=== PATIENT | female | born 1960 | race Caucasian/White ===

== ENCOUNTER 2018-12-02 05:51 | Outpatient (CLI) | payer BC ==
[~2018-12-02] VITALS: Ht 170 cm; Wt 88.6 kg
== END 2018-12-05 09:05 | disposition home or self-care (01) ==
LOC: PREOP 05:51
PROVIDERS: ATTEND Specialist
DX: Z01.818 Encounter for other preprocedural examination (principal)

== ENCOUNTER 2018-12-06 06:15 | Day surgery (SDC) | payer BC ==
[~2018-12-06] VITALS: Ht 170 cm; Wt 88.6 kg
[2018-12-06] MEDS ORDERED: POVIDONE (BETADINE) OPHTH SOLN 5% 30 ML OP ONE (06:30)
[2018-12-06] MEDS ORDERED: MOXIFLOXACIN OPHTH SOLN 5 MG/ML 0.3 ML SYRINGE OP ONE (06:30)
[2018-12-06] MEDS ORDERED: TIMOLOL MALEATE 0.5% 5 ML (TIMOPTIC) BTL OU PRN (06:30)
[2018-12-06] MEDS ORDERED: LIDOCAINE PF 1% 2 ML AMP IR PRN (06:30)
[2018-12-06 06:35] VITALS: BP 136/91
[2018-12-06] MEDS: TETRACAINE 0.5% OPHTH SOLN 4 ML BTL (SINGLE DOSE ONLY) OU PRN ×4 (06:49→07:11)
[2018-12-06] MEDS: PHENYLEPHRINE 10% OPHTH (NEO-SYN) 5 ML BTL OU SCH ×3 (07:00→07:12)
[2018-12-06] MEDS: CYCLOPENTOLATE 1% (CYCLOGYL) 2 ML DROPS OP SCH ×3 (07:00→07:11)
--- NOTE | 2018-12-06 07:47 | Ophthalmologist Pre-Op Note ---
Pre-Operative Progress Note H&P Reviewed The H&P was reviewed, patient examined and no changes noted. Date H&P Reviewed: Dec 06, 2018 Time H&P Reviewed: 07:47 Pre-Op Dx Cataract, Left Eye ROGER RUIZ MD Dec 06, 2018 07:47 POS
[2018-12-06] MEDS ORDERED: acetaZOLAMIDE ER 500 MG CAP (DIAMOX SEQUELS) PO ONE (08:00)
--- NOTE | 2018-12-06 08:07 | Ophthalmology Operative Report ---
Cataract removal/placement IOL PREOPERATIVE DIAGNOSIS: Cataract Left Eye POSTOPERATIVE DIAGNOSIS: Cataract Left Eye PROCEDURE: Cataract removal and placement of posterior chamber implant, left eye SURGEON: Pavel Ruiz ANESTHESIA: Topical with sedation COMPLICATIONS: None ESTIMATED BLOOD LOSS: Minimal DESCRIPTION OF PROCEDURE: After proper informed consent was obtained, the patient, a 58 female, was taken to the Operating Room and the left eye was anesthetized with tetracaine. The left eye was then prepped and draped in the usual manner. A wire lid speculum was placed. A paracentesis was made at the left hand position. Preservative free lidocaine was injected into the anterior chamber followed by viscoelastic. A clear corneal incision was made in the temporal position. A capsulorrhexis was preformed and the central nuclear and cortical material were removed. The posterior capsule was polished and an Jason 17.5 [id number] was placed into the capsular bag. The residual viscoelastic was aspirated and balanced saline solution was injected into the anterior chamber. Moxifloxacin was injected into the anterior chamber. The wound was checked and found to be water tight. The patient tolerated the procedure well without complications. PAVEL RUIZ MD Dec 06, 2018 08:07 POS
[2018-12-06 08:18] VITALS: BP 134/88
--- NOTE | 2018-12-06 12:40 | Anesthesia-General Post-Op ---
MAC Patient Condition Mental Status/LOC: Same as Preop Cardiovascular: Satisfactory Nausea/Vomiting: Absent Respiratory: Satisfactory Pain: Controlled Complications: Absent Post Op Complications Complications None Follow Up Care/Instructions Patient Instructions None needed. Anesthesiology Discharge Order Discharge Order Patient is doing well, no complaints, stable vital signs, no apparent adverse anesthesia problems. No complications reported per nursing. KAMRAN GROSS CRNA Dec 06, 2018 12:40 POS
--- OUTSIDE RECORDS SUMMARY | 2018-12-29 20:26 | XMS REPORT | Continuity of Care Document ---
Author Organization Unknown POS Address Unknown SP Phone Unavailable SP Allergies Active Description Code Type Severity POS Reaction Onset Reported/Identified POS to Patient Clinical Status POS Yes erythromycin base [id number] Drug Allergy SP Moderate STOMACH ULCER 12/05 SP SP Yes Penicillins [id number] Drug Aller gy SP N/A 12/05/2018 SP Medications There is no data. Problems Date Dx Coded Attending Type Code POS Diagnosed By POS 12/04/2018 ROGER RUIZ MD Ot Z01.818 SP ENCOUNTER FOR OTHER PREPROCEDURAL EXAMIN SP 12/05/2018 ROGER RUIZ MD Ot Z01.818 SP ENCOUNTER FOR OTHER PREPROCEDURAL EXAMIN SP 12/05/2018 ROGER RUIZ MD Ot Z01.818 SP ENCOUNTER FOR OTHER PREPROCEDURAL EXAMIN SP 12/06/2018 ROGER RUIZ MD Ot E11.36 SP TYPE 2 DIABETES MELLITUS WITH DIABETIC C SP 12/06/2018 ROGER RUIZ MD Ot H25.12 SP AGE-RELATED NUCLEAR CATARACT, LEFT EYE SP 12/06/2018 ROGER RUIZ MD Ot M19.90 SP UNSPECIFIED OSTEOARTHRITIS, UNSPECIFIED SP 12/06/2018 ROGER RUIZ MD Ot Z80 .9 SP HISTORY OF MALIGNANT NEOPLASM, UN SP 12/06/2018 ROGER RUIZ MD Ot Z83 .3 SP HISTORY OF DIABETES MELLITUS SP 12/06/2018 ROGER RUIZ MD Ot Z83.518 SP FAMILY HISTORY OF OTHER SPECIFIED EYE DI SP 12/06/2018 ROGER RUIZ MD Ot Z88 .0 SP STATUS TO PENICILLIN SP 12/06/2018 ROGER RUIZ MD Ot Z88 .1 SP STATUS TO OTHER ANTIBIOTIC AGENT SP 12/06/2018 ROGER RUIZ MD Ot Z90.89 SP ACQUIRED ABSENCE OF OTHER ORGANS SP 12/06/2018 ROGER RUIZ MD Ot Z98.51 SP TUBAL LIGATION STATUS SP Procedures There is no data. Results There is no data. Encounters ACCT No. Visit Date/Time Discharge Status POS Pt. Type Provider Facility Loc./Un it POS Complaint POS [id number] 12/06/2018 06:15:00 019 08:18:00 SP DIS Outpatient ROGER RUIZ MD [facility] SDC CATARACT LEFT EYE SP [id number] 12/02/2018 05:51:00 09:05:00 SP DIS Outpatient ROGER RUIZ MD [facility] PREOP CATARACT LEFT EYE SP
--- OUTSIDE RECORDS SUMMARY | 2018-12-29 20:26 | XMS REPORT ---
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 Name Role Phone POS DELFINO MCKEON Unavailable SP PROBLEMS No Known Problems ALLERGIES Substance Reaction Event Type Date Status POS Penicillin V Potassium anaphylaxis Drug Allergy Nov, Activ e SP Azithromycin ulcers Drug Allergy Nov, Active SP ENCOUNTERS Encounter Location Date Diagnosis POS [facility] [address] [facility] [id number] [place] [id number] SP Nov, Generalized body aches R52 a nd Acute nonintractable headache, SP headache type R51 [facility] [address] [place] [place] [id number] [place] [phone] SP Nov, Encounter for immunization Z 23 SP IMMUNIZATIONS No Known Immunizations SOCIAL HISTORY Never Assessed REASON FOR VISIT Headache, started feeling sick this smorning around 6am. pt states she had a flu shot yesterday. body aches, headache,nasal drip and sinus pressure. Joseline ANGELES, New pt, moved from [place] prior PCP [facility], Dr. Pina. FRANK over a year ago. Joseline ANGELES PLAN OF CARE Activity Details POS SP Follow Up prn Reason: SP VITAL SIGNS Height 67 in 2017-11-29 POS Weight 191.7 lbs 2017-11-29 POS Temperature 97.6 degrees Fahrenheit 2017-11-29 POS Heart Rate 80 bpm 2017-11-29 POS Respiratory Rate 20 2017-11-29 POS BMI 30.02 kg/m2 2017-11-29 POS Blood pressure systolic 110 mmHg 2017-11-29 POS Blood pressure diastolic 70 mmHg 2017-11-29 POS MEDICATIONS No Known Medications RESULTS No Results PROCEDURES No Known procedures INSTRUCTIONS MEDICATIONS ADMINISTERED No Known Medications MEDICAL (GENERAL) HISTORY Type Description Date POS Medical History Type ll Diabetes SP Surgical History tonsilectomy SP Surgical History nose surgery 1999 SP Surgical History left ear surgery, stapedectomy 1995 SP Surgical History tubes ligation 1988 SP Surgical History surgery on buttux 2014 SP Hospitalization History diabetes symptoms, high blood sugar 2014 SP
== END 2018-12-06 08:18 | disposition home or self-care (01) ==
LOC: SDC 06:15
PROVIDERS: ATTEND Specialist
DX: E11.36 Type 2 diabetes mellitus with diabetic cataract (principal); H25.12 Age-related nuclear cataract, left eye; M19.90 Unspecified osteoarthritis, unspecified site; Z88.0 Allergy status to penicillin; Z88.1 Allergy status to other antibiotic agents; Z98.51 Tubal ligation status; Z90.89 Acquired absence of other organs; Z83.518 Family history of other specified eye disorder; Z83.3 Family history of diabetes mellitus; Z80.9 Family history of malignant neoplasm, unspecified

== ENCOUNTER 2019-01-15 06:16 | Outpatient (CLI) | payer BC ==
[~2019-01-15] VITALS: Ht 170.2 cm; Wt 86.4 kg
== END 2019-01-15 11:41 ==
LOC: PREOP 06:16
PROVIDERS: ATTEND Specialist
DX: Z01.818 Encounter for other preprocedural examination (principal)

== ENCOUNTER 2019-01-17 06:15 | Day surgery (SDC) | payer BC ==
[~2019-01-17] VITALS: Ht 170.2 cm; Wt 86.4 kg
[2019-01-17] MEDS ORDERED: POVIDONE (BETADINE) OPHTH SOLN 5% 30 ML OP ONE (06:30)
[2019-01-17] MEDS ORDERED: TIMOLOL MALEATE 0.5% 5 ML (TIMOPTIC) BTL OU PRN (06:30)
[2019-01-17] MEDS ORDERED: LIDOCAINE PF 1% 2 ML AMP IR PRN (06:30)
[2019-01-17] MEDS ORDERED: MOXIFLOXACIN OPHTH SOLN 5 MG/ML 0.3 ML SYRINGE OP ONE (06:30)
[2019-01-17] MEDS: TETRACAINE 0.5% OPHTH SOLN 4 ML BTL (SINGLE DOSE ONLY) OU PRN ×4 (06:54→07:17)
[2019-01-17 06:56] VITALS: BP 116/83
[2019-01-17] MEDS: CYCLOPENTOLATE 1% (CYCLOGYL) 2 ML DROPS OP SCH ×3 (07:06→07:17)
[2019-01-17] MEDS: PHENYLEPHRINE 10% OPHTH (NEO-SYN) 5 ML BTL OU SCH ×3 (07:06→07:17)
--- NOTE | 2019-01-17 08:00 | Ophthalmologist Pre-Op Note ---
Pre-Operative Progress Note H&P Reviewed The H&P was reviewed, patient examined and no changes noted. Date H&P Reviewed: Jan 17, 2019 Time H&P Reviewed: 08:00 Pre-Op Dx Cataract, Right Eye ROGER RUIZ MD Jan 17, 2019 08:00 POS
[2019-01-17] MEDS ORDERED: MIDAZOLAM 2 MG/2 ML (VERSED) VIAL ONE (08:05)
--- NOTE | 2019-01-17 08:22 | Ophthalmology Operative Report ---
Cataract removal/placement IOL PREOPERATIVE DIAGNOSIS: Cataract Right Eye POSTOPERATIVE DIAGNOSIS: Cataract Right Eye PROCEDURE: Cataract removal and placement of posterior chamber implant, right eye SURGEON: Pavel Ruiz ANESTHESIA: Topical with sedation COMPLICATIONS: None ESTIMATED BLOOD LOSS: Minimal DESCRIPTION OF PROCEDURE: After proper informed consent was obtained, the patient, a 58 female, was taken to the Operating Room and the right eye was anesthetized with tetracaine. The right eye was then prepped and draped in the usual manner. A wire lid speculum was placed. A paracentesis was made at the left hand position. Preservative free lidocaine was injected into the anterior chamber followed by viscoelastic. A clear corneal incision was made in the temporal position. A capsulorrhexis was preformed and the central nuclear and cortical material were removed. The posterior capsule was polished and Jason 17.5 AU00T0 IOL was placed into the capsular bag. The residual viscoelastic was aspirated and balanced saline solution was injected into the anterior chamber. Moxifloxacin was injected into the anterior chamber. The wound was checked and found to be water tight. The patient tolerated the procedure well without complications. PAVEL RUIZ MD Jan 17, 2019 08:22 POS
[2019-01-17 08:30] VITALS: BP 119/92
[2019-01-17] MEDS ORDERED: acetaZOLAMIDE ER 500 MG CAP (DIAMOX SEQUELS) PO ONE (08:30)
--- NOTE | 2019-01-17 12:35 | Anesthesia-General Post-Op ---
MAC Patient Condition Mental Status/LOC: Same as Preop Cardiovascular: Satisfactory Nausea/Vomiting: Absent Respiratory: Satisfactory Pain: Controlled Complications: Absent Post Op Complications Complications None Follow Up Care/Instructions Patient Instructions None needed. Anesthesiology Discharge Order Discharge Order Patient is doing well, no complaints, stable vital signs, no apparent adverse anesthesia problems. No complications reported per nursing. KAMRAN GROSS CRNA Jan 17, 2019 12:35 POS
== END 2019-01-17 08:30 | disposition home or self-care (01) ==
LOC: SDC 06:15
PROVIDERS: ATTEND Specialist
DX: E11.36 Type 2 diabetes mellitus with diabetic cataract (principal); H25.11 Age-related nuclear cataract, right eye; M19.90 Unspecified osteoarthritis, unspecified site; Z88.2 Allergy status to sulfonamides; Z87.891 Personal history of nicotine dependence; Z88.1 Allergy status to other antibiotic agents; Z79.84 Long term (current) use of oral hypoglycemic drugs; Z83.518 Family history of other specified eye disorder; Z83.3 Family history of diabetes mellitus; Z80.9 Family history of malignant neoplasm, unspecified
CPT/HCPCS: 82962

== ENCOUNTER 2022-02-21 16:49 | Emergency (ER) | payer SELFPAY ==
[~2022-02-21] VITALS: Ht 175 cm; Wt 86.4 kg
[2022-02-21] MEDS ORDERED: NS IV 1000 ML 1,000 ML IV SCH (17:45)
[2022-02-21 17:46] LABS: BASOPHILS # (AUTO) 0.1 10^3/uL (0.0-0.1); BASOPHILS % (AUTO) 1 % (0-10); EOSINOPHILS # (AUTO) 0.2 10^3/uL (0.0-0.3); EOSINOPHILS % (AUTO) 2 % (0-10); HEMATOCRIT 47 % (35-52); HEMOGLOBIN 16.1 g/dL (11.5-16.0); LYMPHOCYTES # (AUTO) 3.9 10^3/uL (1.0-4.0); LYMPHOCYTES % (AUTO) 39 % (12-44); MEAN CORPUSCULAR HEMOGLOBIN 30 pg (25-34); MEAN CORPUSCULAR HGB CONC 34 g/dL (32-36); MEAN CORPUSCULAR VOLUME 89 fL (80-99); MEAN PLATELET VOLUME 11.5 fL (9.0-12.2); MONOCYTES # (AUTO) 0.6 10^3/uL (0.0-1.0); MONOCYTES % (AUTO) 6 % (0-12); NEUTROPHILS # (AUTO) 5.3 10^3/uL (1.8-7.8); NEUTROPHILS % (AUTO) 52 % (42-75); PLATELET COUNT 266 10^3/uL (130-400)
[2022-02-21 17:49] LABS: BILIRUBIN,URINE NEGATIVE (NEGATIVE); CLARITY,URINE CLEAR; COLOR,URINE YELLOW; GLUCOSE, URINE (UA) 3+ (NEGATIVE); KETONES,URINE 3+ (NEGATIVE); LEUKOCYTE ESTERASE ,URINE TRACE (NEGATIVE); NITRITE,URINE NEGATIVE (NEGATIVE); PROTEIN,URINE NEGATIVE (NEGATIVE)
[2022-02-21 17:57] LABS: BACTERIA,URINE FEW /HPF; WBC,URINE 25-50 /HPF
[2022-02-21 17:58] LABS: SQUAMOUS EPITHELIAL CELL,UR RARE /HPF
[2022-02-21 18:01] LABS: ALBUMIN 4.8 GM/DL (3.2-4.5); CHLORIDE 102 MMOL/L (98-107); POTASSIUM 4.2 MMOL/L (3.6-5.0); SODIUM 138 MMOL/L (135-145)
[2022-02-21 18:02] LABS: CALCIUM 10.1 MG/DL (8.5-10.1)
[2022-02-21 18:03] LABS: GLUCOSE 349 MG/DL (70-105)
[2022-02-21 18:04] LABS: TOTAL PROTEIN 8.5 GM/DL (6.4-8.2)
[2022-02-21 18:05] LABS: BILIRUBIN,TOTAL 0.5 MG/DL (0.1-1.0); CARBON DIOXIDE 20 MMOL/L (21-32)
[2022-02-21 18:07] LABS: ALKALINE PHOSPHATASE 102 U/L (40-136); CREATININE SERUM 0.86 MG/DL (0.60-1.30); GFR ESTIMATED 78
[2022-02-21 18:08] LABS: BUN/CREATININE RATIO 17
[2022-02-21 18:10] LABS: ALANINE AMINOTRANSFERASE 33 U/L (0-55)
[2022-02-21] MEDS ORDERED: NITROFURANTOIN 100 MG (MACROBID) CAPSULE PO ONE (19:00)
--- NOTE | 2022-02-21 19:32 | ED General ---
General Chief Complaint: Glucose Problems Stated Complaint: HIGH BLOOD SUGARS Nursing Triage Note: PT SENT HERE FROM [facility] WITH CC OF HYPERGLYCEMIA, A1C OF OVER 13 AND BS OF 378, FINGERSTICK OF 321 AT TRIAGE, NO MEDS SINCE AUGUST BECAUSE SHE COULDN'T AFFORD IT Source of Information: Patient Exam Limitations: No Limitations History of Present Illness Date Seen by Provider: Feb 21, 2022 Time Seen by Provider: 16:53 Initial Comments 61-year-old female presents today with complaints of hyperglycemia. States she was at the [facility] clinic trying to establish care with a new provider when they checked her blood sugar and hemoglobin A1c, blood sugar was 378, A1c was 13. [facility] provider sent her to the ER for evaluation. She states she has been off of her medications since August due to being unable to afford them, she is supposed to take atorvastatin, NovoLog, Lantus, Jardiance, and Ozempic. She reports urinary frequency, every 2 hours or more, states this has been consistent since her diagnosis of diabetes. Reports numbness/swelling in her feet for the last couple of months. Denies abdominal pain, N/V, chest pain, shortness of air, dysuria, fever/chills. Allergies and Home Medications Allergies Coded Allergies: Penicillins (Verified Allergy, Severe, 12/05/18) ANAPHYLAXIS erythromycin base (Verified Allergy, Intermediate, STOMACH ULCER, 12/05/18) Patient Home Medication List Home Medication List Reviewed: Yes Nitrofurantoin Monohyd/M-Cryst (Macrobid 100 mg Capsule) 100 Mg Capsule, 1 TAB PO BID Prescribed by: Shefali Lara on 02/21/221954 Review of Systems Review of Systems Constitutional: see HPI Past Xrtmoju-Tvlizt-Mxhvkh Hx Patient Social History Tobacco Use?: Yes Smoking Status: Former Smoker Substance use?: No Alcohol Use?: Yes Alcohol type: Beer, Hard Liquor, Wine Past Medical History Surgery/Hospitalization HX: DIABETIC TYPE II, ARTHRITIS IN LOW BACK, NEUROPATHY, Physical Exam Vital Signs Vital Signs - First Documented 02/21/22 17:33 Temp 36.1 Pulse 97 Resp 20 B/P (MAP) 142/88 (106) Pulse Ox 97 O2 Delivery Room Air Capillary Refill : Less Than 3 Seconds Height, Weight, BMI Height: '" Weight: lbs. oz. kg; 28.00 BMI Method: General Appearance: No Apparent Distress, WD/WN Neck: Normal Inspection, Supple Respiratory: Lungs Clear, Normal Breath Sounds, No Accessory Muscle Use, No Respiratory Distress Cardiovascular: Regular Rate, Rhythm, No Edema, No Gallop, No JVD, No Murmur Genital/Rectal: Other (abscess to suprapubic area on left side, induration, area of fluctuation) Extremity: Normal Range of Motion, Pedal Edema (1+) Neurologic/Psychiatric: Alert, Oriented x3, Normal Mood/Affect Skin: Normal Color, Warm/Dry Progress/Results/Core Measures Suspected Sepsis SIRS Temperature: Pulse: 97 Respiratory Rate: 20 Laboratory Tests 02/21/22 17:30: White Blood Count 10.0 Blood Pressure 142 /88 Mean: 106 Laboratory Tests 02/21/22 17:30: Creatinine 0.86, Platelet Count 266, Total Bilirubin 0.5 Results/Orders Lab Results Laboratory Tests Test 02/21/22 17:02 02/21/22 17:30 02/21/22 17:43 02/21/22 19:19 Range/Units Glucometer 321 H 70-110 MG/DL White Blood Count 10.0 4.3-11.0 10^3/uL Red Blood Count 5.33 H 3.80-5.11 10^6/uL Hemoglobin 16.1 H 11.5-16.0 g/dL Hematocrit 47 35-52 % Mean Corpuscular Volume 89 80-99 fL Mean Corpuscular Hemoglobin 30 25-34 pg Mean Corpuscular Hemoglobin Concent 34 32-36 g/dL Red Cell Distribution Width 13.2 10.0-14.5 % Platelet Count 266 130-400 10^3/uL Mean Platelet Volume 11.5 9.0-12.2 fL Immature Granulocyte % (Auto) 0 % Neutrophils (%) (Auto) 52 42-75 % Lymphocytes (%) (Auto) 39 12-44 % Monocytes (%) (Auto) 6 0-12 % Eosinophils (%) (Auto) 2 0-10 % Basophils (%) (Auto) 1 0-10 % Neutrophils # (Auto) 5.3 1.8-7.8 10^3/uL Lymphocytes # (Auto) 3.9 1.0-4.0 10^3/uL Monocytes # (Auto) 0.6 0.0-1.0 10^3/uL Eosinophils # (Auto) 0.2 0.0-0.3 10^3/uL Basophils # (Auto) 0.1 0.0-0.1 10^3/uL Immature Granulocyte # (Auto) 0.0 0.0-0.1 10^3/uL Sodium Level 138 135-145 MMOL/L Potassium Level 4.2 3.6-5.0 MMOL/L Chloride Level 102 98-107 MMOL/L Carbon Dioxide Level 20 L 21-32 MMOL/L Anion Gap 16 H 5-14 MMOL/L Blood Urea Nitrogen 15 7-18 MG/DL Creatinine 0.86 0.60-1.30 MG/DL Estimat Glomerular Filtration Rate 78 BUN/Creatinine Ratio 17 Glucose Level 349 H 70-105 MG/DL Calcium Level 10.1 8.5-10.1 MG/DL Corrected Calcium 8.5-10.1 MG/DL Phosphorus Level 3.0 2.3-4.7 MG/DL Magnesium Level 2.0 1.6-2.4 MG/DL Total Bilirubin 0.5 0.1-1.0 MG/DL Aspartate Amino Transf (AST/SGOT) 20 5-34 U/L Alanine Aminotransferase (ALT/SGPT) 33 0-55 U/L Alkaline Phosphatase 102 40-136 U/L Total Protein 8.5 H 6.4-8.2 GM/DL Albumin 4.8 H 3.2-4.5 GM/DL Urine Color YELLOW Urine Clarity CLEAR Urine pH 6.0 5-9 Urine Specific [place] 1.025 H 1.016-1.022 Urine Protein NEGATIVE NEGATIVE Urine Glucose (UA) 3+ H NEGATIVE Urine Ketones 3+ H NEGATIVE Urine Nitrite NEGATIVE NEGATIVE Urine Bilirubin NEGATIVE NEGATIVE Urine Urobilinogen 0.2 < = 1.0 MG/DL Urine Leukocyte Esterase TRACE H NEGATIVE Urine RBC (Auto) NEGATIVE NEGATIVE Urine RBC NONE /HPF Urine WBC 25-50 H /HPF Urine Squamous Epithelial Cells RARE /HPF Urine Crystals NONE /LPF Urine Bacteria FEW H /HPF Urine Casts NONE /LPF Urine Mucus NEGATIVE /LPF Urine Culture Indicated YES Venous Blood pH 7.36 7.31-7.41 Venous Blood Partial Pressure CO2 37 L 40-52 MMHG Venous Blood HCO3 21 L 22-28 MMOL/L Test 02/21/22 19:39 Range/Units Glucometer 277 H 70-110 MG/DL My Orders Orders - SHEFALI LARA R MEDICAL GENETICS DIRECTOR Accucheck Stat ONCE (02/21/22 16:53) Cbc With Automated Diff (02/21/22 17:30) Comprehensive Metabolic Panel (02/21/22 17:30) Ua Culture If Indicated (02/21/22 17:30) Magnesium (02/21/22 17:30) Phosphorus (02/21/22 17:30) Ed Iv/Invasive Line Start (02/21/22 17:40) Ns Iv 1000 Ml (Sodium Chloride 0.9%) (02/21/22 17:45) Urine Culture (02/21/22 17:43) Nitrofurantoin Capsule,Macro (Macrobid C (02/21/22 19:00) Medications Given in ED Current Medications Medications Dose Ordered Sig/Ck Route Start Time Stop Time Status Last Admin Dose Admin Nitrofurantoin Macrocrystals 100 mg ONCE ONCE PO 02/21/22 19:00 02/21/22 19:01 DC 02/21/22 19:00 100 MG Vital Signs/I&O 02/21/22 02/21/22 17:33 20:12 Temp 36.1 36.1 Pulse 97 74 Resp 20 20 B/P (MAP) 142/88 (106) 119/76 Pulse Ox 97 97 O2 Delivery Room Air Room Air Capillary Refill : Less Than 3 Seconds Blood Pressure Mean: 106 Point of Care Testing Finger Stick Blood Glucose: 321 Blood Glucose Action Taken: SHEFALI AUGUSTIN Progress Note #1: Time: 17:05 Progress Note Patient seen and evaluated, resting comfortably on the bed, no acute distress. Based on exam and symptoms concerning for DKA, HHS, hyperglycemia. Work-up initiated including CBC, CMP, magnesium, phosphorus, UA. Progress Note #2: Time: 18:49 Progress Note Urine showed 3+ ketones, VBG ordered. Urinalysis also indicates UTI, Macrobid ordered. CBC grossly normal, RBCs 5.33, hemoglobin 16.1. CMP reviewed, CO2 20, anion gap 16, glucose 349. Progress Note #3: Time: 19:42 Progress Note VBG reviewed, pH within normal limits. Lab results discussed with patient. Patient then reported abscess to left suprapubic region. Area of induration with area of fluctuation. Denies any fever/chills. Patient's PCP had called previously and informed nursing staff that they were aware of the abscess and would be taking care of it. Patient was informed of this. Discussed follow-up with patient. Patient provided return precautions. Departure Impression Primary Impression: Diabetes mellitus Additional Impression: Hyperglycemia Disposition: 01 HOME, SELF-CARE Condition: Stable Departure-Patient Inst. Decision time for Depature: 19:42 Referrals: MEILSA LAY APRN (PCP/Family) Primary Care Physician Patient Instructions: High Blood Sugar, Adult, Diabetic Neuropathy (DC) Add. Discharge Instructions: Follow-up with PCP. Call them in the morning to reschedule and restart you on new medications. Return for any new, concerning, or worsening symptoms. Monitor your blood sugar. Return for elevated blood sugar greater than 400, abdominal pain with nausea vomiting. All discharge instructions reviewed with patient and/or family. Voiced understanding. Scripts Nitrofurantoin Monohyd/M-Cryst (Macrobid 100 mg Capsule) 100 Mg Capsule 1 TAB PO BID for 5 Days, #10 CAP 0 Refills Prov: SHEFALI LARA APRN 02/21/22 SHEFALI LARA APRN Feb 21, 2022 19:32
[2022-02-21] MEDS ORDERED: NITR-65 PO (19:55)
[2022-02-21 20:12] VITALS: BP 119/76
== END 2022-02-21 20:12 | disposition home or self-care (01) ==
LOC: EDUNIT# 16:49 → ER 16:51
DX: E11.65 Type 2 diabetes mellitus with hyperglycemia (principal); N39.0 Urinary tract infection, site not specified; T38.3X6A Underdosing of insulin and oral hypoglycemic [antidiabetic] drugs, initial encounter; Z87.891 Personal history of nicotine dependence; Z91.120 Patient's intentional underdosing of medication regimen due to financial hardship; Z88.0 Allergy status to penicillin; Z28.311 Partially vaccinated for COVID-19
CPT/HCPCS: 36415; 80053; 81000; 82805; 82947; 83735; 84100; 85025; 87077; 87088; 87186